=== PATIENT | female | born 1990 | race Two or more races ===

== ENCOUNTER 2021-11-26 13:34 | Emergency (ER) | payer OTHER ==
[~2021-11-26] VITALS: Ht 165.1 cm; Wt 69.9 kg
== END 2021-11-26 15:53 | disposition home or self-care (01) ==
LOC: ER 13:34
DX: O26.891 Other specified pregnancy related conditions, first trimester (principal); O99.810 Abnormal glucose complicating pregnancy; Z3A.13 13 weeks gestation of pregnancy; R42 Dizziness and giddiness; R53.1 Weakness

== ENCOUNTER 2022-06-03 10:06 | Inpatient (IN) | payer OTHER ==
[~2022-06-03] VITALS: Ht 152.4 cm; Wt 80.7 kg
[2022-06-05] MEDS ORDERED: PRENATAL TABLE1 EAC4 PO (01:25)
== END 2022-06-07 13:19 | disposition home or self-care (01) | DRG 768 ==
LOC: OB/GYN 10:06 → LDR 06-05 00:48 → OB/GYN 06-05 00:48
PROVIDERS: ADMIT Specialist; ATTEND Specialist
PROC: 10E0XZZ Delivery of Products of Conception, External Approach (ICD-10-PCS; principal; 2022-06-05)
PROC: 0DQR0ZZ Repair Anal Sphincter, Open Approach (ICD-10-PCS; 2022-06-05)
PROC: 0W8NXZZ Division of Female Perineum, External Approach (ICD-10-PCS; 2022-06-05)
PROC: 4A1HXCZ Monitoring of Products of Conception, Cardiac Rate, External Approach (ICD-10-PCS; 2022-06-05)
DX: O70.21 Third degree perineal laceration during delivery, IIIa (principal); Z37.0 Single live birth; Z3A.40 40 weeks gestation of pregnancy; Z20.822 Contact with and (suspected) exposure to COVID-19

== ENCOUNTER 2025-01-14 14:45 | Inpatient (IN) | payer OTHER ==
[~2025-01-14] VITALS: Ht 165.1 cm; Wt 73.9 kg
[~2025-01-14 14:45] MED LIST: PRENATAL TABLE1 EAC4 PO
[2025-01-26] VITALS (8 sets, daily range): BP systolic 97–107; BP diastolic 60–71; O2SAT 98
[2025-01-26] MEDS ORDERED: RINGERS SOLUTION,LACTATED 1,000 ML IV SCH (08:30)
[2025-01-26] MEDS ORDERED: IRON236 MG PO (08:34)
[2025-01-26] MEDS ORDERED: VITAMIN C100 MG PO (08:35)
[2025-01-26 08:40] LABS: BASO % 0.3 % (0.1-1.2); EOS # 0.03 (0.04-0.54); EOS % 0.3 % (0.7-7.0); LYMPH # 1.28 (1.18-3.74); LYMPH % 12.1 % (19.3-53.1); MEAN PLATELET VOLUME 10.20 fl (9.4-12.4); MONO # 0.50 (0.24-0.82); MONO % 4.7 % (4.7-12.5); NEUT # 8.68 (1.56-6.13); NEUT % 82.3 % (34.0-71.1); RED CELL DISTRIBUTION WIDTH 13.2 % (11.6-14.4)
[2025-01-26 09:03] LABS: INR 0.94
[2025-01-26 09:36] LABS: ALT/SGPT 11.0 U/L (12-78); AST/SGOT 7.0 U/L (15-37); BILIRUBIN TOTAL 0.27 mg/dL (0.3-1.2); BUN CREA RATIO 16.0 (7.0-25.0); CREATININE SERUM 0.55 mg/dL (0.55-1.02); GFR 126.52; GLOBULINA 3.6 G/DL (2.4-3.5); GLUCOSE FASTING 89.0 mg/dL (65-100); OSMOLALITY SERUM 279.0 MOSM/KG (275-295)
[2025-01-26] MEDS ORDERED: OXYTOCIN 20 UNITS/500ML RL PIGGYBAG IV SCH (11:45)
[2025-01-26] MEDS ORDERED: PNV,CALCIUM 72/IRON/FOLIC ACID 1 TAB TABLET PO SCH (12:36)
[2025-01-26] MEDS ORDERED: OXYTOCIN 1,000 ML IV SCH (12:45)
[2025-01-26] MEDS ORDERED: CHLORHEXIDINE GLUCONATE 120 ML BOTTLE TP SCH (12:45)
[2025-01-26] MEDS ORDERED: LIDOCAINE HCL 1% 10ML VIAL IJ ONE (13:30)
[2025-01-26] MEDS ORDERED: ERYTHROMYCIN BASE OPHT 1GM EACH TUBE OP ONE (13:30)
[2025-01-26] MEDS ORDERED: OxyCODONE HCL 5 MG TABLET (ROXICODONE) PO SCH (16:00)
[2025-01-26] MEDS ORDERED: DOCUSATE SODIUM 100MG CAP PO SCH (17:00)
[2025-01-26] MEDS ORDERED: KETOROLAC TROMETHAMINE 10 MG TABLET PO SCH (18:00)
[2025-01-27 00:23] VITALS: BP 92/60
[2025-01-27 05:24] VITALS: BP 96/61
[2025-01-27 12:53] VITALS: BP 97/60; O2SAT 99
[2025-01-27 17:22] VITALS: BP 90/60
[2025-01-27 22:19] VITALS: BP 100/64
[2025-01-28] VITALS: BP 94/60
[2025-01-28 09:06] VITALS: BP 100/66; O2SAT 98
== END 2025-01-28 11:27 | disposition home or self-care (01) | DRG 807 ==
LOC: LDR 01-26 08:10 → OB/GYN 01-26 12:50 → LDR 01-27 14:45 → OB/GYN 01-28 11:27
PROVIDERS: Obstetrics & Gynecology Maternal & Fetal Medicine; ADMIT Obstetrics & Gynecology; ATTEND Obstetrics & Gynecology
PROC: 10E0XZZ Delivery of Products of Conception, External Approach (ICD-10-PCS; principal; 2025-01-26)
PROC: 0KQM0ZZ Repair Perineum Muscle, Open Approach (ICD-10-PCS; 2025-01-26)
PROC: 0W8NXZZ Division of Female Perineum, External Approach (ICD-10-PCS; 2025-01-26)
PROC: 4A1HXCZ Monitoring of Products of Conception, Cardiac Rate, External Approach (ICD-10-PCS; 2025-01-26)
DX: O70.1 Second degree perineal laceration during delivery (principal); Z37.0 Single live birth; Z3A.39 39 weeks gestation of pregnancy

== ENCOUNTER 2025-01-21 11:22 | Outpatient (CLI) | payer OTHER | END 2025-01-21 12:25 | disposition home or self-care (01) | LOC: NST 11:22 | PROVIDERS: ATTEND Obstetrics & Gynecology Maternal & Fetal Medicine | DX: Z34.83 Encounter for supervision of other normal pregnancy, third trimester (principal) ==

== ENCOUNTER 2025-01-25 15:41 | Outpatient (CLI) | payer OTHER ==
[2025-01-26] MEDS ORDERED: IRON236 MG PO (08:34)
[2025-01-26] MEDS ORDERED: VITAMIN C100 MG PO (08:35)
== END 2025-01-25 16:39 | disposition home or self-care (01) ==
LOC: NST 15:41
PROVIDERS: ATTEND Obstetrics & Gynecology Gynecology
DX: Z34.83 Encounter for supervision of other normal pregnancy, third trimester (principal)